=== PATIENT | female | born 1965 | race Caucasian/White ===

== ENCOUNTER 2017-11-28 09:12 | Emergency (ER) | payer MEDICAID, OTHER ==
[~2017-11-28] VITALS: Ht 154.9 cm; Wt 82.0 kg
[~2017-11-28 09:12] MED LIST: ADV250 IH; ALBU8HFA IH; ARIP15TA2 PO; DIVA500T52 PO; SULF1TAB42 PO; TIOT185 IH
[2017-11-28] MEDS ORDERED: POTA10TA14 PO (09:27)
[2017-11-28] MEDS ORDERED: BECL10.62 IH (09:27)
[2017-11-28] MEDS ORDERED: LITH300T PO (09:27)
[2017-11-28] MEDS ORDERED: FURO20 PO (09:27)
[2017-11-28] MEDS ORDERED: HYDR50CA10 PO (09:27)
[2017-11-28] MEDS ORDERED: PredniSONE 20 MG TABLET PO ONE (10:00)
[2017-11-28] MEDS ORDERED: SODIUM CHLORIDE 0.9% 500 ML IV ONE (10:00)
[2017-11-28 13:04] VITALS: BP 137/108
== END 2017-11-28 14:11 | disposition home or self-care (01) ==
LOC: EMS 09:12
DX: J45.909 Unspecified asthma, uncomplicated (principal); I50.9 Heart failure, unspecified; F31.9 Bipolar disorder, unspecified; F20.9 Schizophrenia, unspecified; F17.210 Nicotine dependence, cigarettes, uncomplicated; Z88.0 Allergy status to penicillin
CPT/HCPCS: 99284; J7040; J7512